=== PATIENT | female | born 1985 | race Caucasian/White ===

== ENCOUNTER 2023-05-27 13:48 | Emergency (ER) | payer OTHER, BC, SELFPAY ==
[2023-05-27] VITALS (7 sets, daily range): BP systolic 122–136; BP diastolic 73–91; PULSE 88–108; RESP 16–22; TEMP 37–37.3; O2SAT 97–100; BMI 25.0
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
[2023-05-27 15:37] LABS: Basophils Absolute Auto 0.02 K/uL (0.00-0.30); Basophils Percent Auto 0.2 % (0.0-3.0); Eosinophils Absolute Auto 0.05 K/uL (0.00-0.50); Eosinophils Percent Auto 0.6 % (0.0-7.0); Hematocrit 38.4 % (33.0-51.0); Hemoglobin* 12.8 gm/dL (12.0-16.0); Immature Granulocytes Abs Auto 0.02 K/uL (0.00-0.30); Immature Granulocytes Pct Auto 0.2 %; Lymphocytes Percent Auto 16.6 % (20-44); Mean Corpuscular HGB Conc 33 gm/dL (32-36); Mean Corpuscular Hemoglobin 30 pg (26-34); Mean Corpuscular Volume 89 fL (80-100); Neutrophils Percent Auto 75.4 % (42.0-72.0); Platelet Count* 205 K/uL (140-440); RDW Coefficient of Variation % 12.5 % (11.5-15.5); Red Blood Count 4.32 m/uL (4.00-5.20); White Blood Count* 8.81 K/uL (4.50-11.00)
[2023-05-27 15:41] LABS: Slide Review Reflex No
[2023-05-27 16:15] LABS: Chloride* 106 mmol/L (96-114)
[2023-05-27 16:16] LABS: Albumin* 4.6 g/dL (3.3-5.0); Potassium* 3.4 mmol/L (3.6-5.1); Sodium* 137 mmol/L (135-149)
[2023-05-27 16:18] LABS: Creatinine* 0.8 mg/dL (0.5-1.5); Est. Creatinine Clearance* 91.01; Estimated Glomerular Filt Rate 98 ml/min
[2023-05-27 16:19] LABS: Alanine Aminotransferase* 17 U/L (4-35); Alkaline Phosphatase* 80 U/L (40-150); Anion Gap 10 mEq/L (7-15); Aspartate Amino Transferase* 20 U/L (12-35); Bilirubin Total* 0.3 mg/dL (0.1-1.5); Blood Urea Nitrogen* 11 mg/dL (5-24); Carbon Dioxide* 21 mmol/L (20-32); Glucose* 114 mg/dL (60-115); Total Protein* 7.6 g/dL (6.0-8.3)
[2023-05-27 16:20] LABS: Calcium* 9.2 mg/dL (8.4-10.6)
[2023-05-27 16:32] LABS: Troponin I* < 0.01 ng/mL (0.01-0.04)
== END 2023-05-27 17:12 | disposition home or self-care (01) ==
PROVIDERS: Emergency Provider Family Medicine
DX: M54.6 Pain in thoracic spine (principal); V43.52XA Car driver injured in collision with other type car in traffic accident, initial encounter
CPT/HCPCS: 36415; 71045; 76604; 76705; 80053; 84484; 85025; 93308; 94761; 99284; 99285; G0390